=== PATIENT | male | born 1975 | race Hispanic/Latino ===

== ENCOUNTER 2024-02-12 09:43 | Emergency (ER) | payer OTHER ==
[~2024-02-12] VITALS: Ht 170.2 cm; Wt 86.2 kg
[2024-02-12] MEDS: acetaMINOPHEN 500 MG TABLET PO ONE (11:07)
[2024-02-12] MEDS: 0.9%NACL 1000ML 660 ML IV ONE (11:09)
[2024-02-12] MEDS ORDERED: CYCL10TA16 PO (13:05)
[2024-02-12 13:50] VITALS: BP 126/71; PULSE 74; RESP 20; TEMP 98.2; O2SAT 98
== END 2024-02-12 13:55 | disposition home or self-care (01) ==
LOC: EDH 09:43
DX: R51.9 Headache, unspecified (principal); M25.512 Pain in left shoulder; R07.89 Other chest pain; Z79.899 Other long term (current) drug therapy; V89.2XXA Person injured in unspecified motor-vehicle accident, traffic, initial encounter; Y93.89 Activity, other specified; Y92.488 Other paved roadways as the place of occurrence of the external cause; Y99.8 Other external cause status
CPT/HCPCS: 70450; 71046; 72125; 73020